=== PATIENT | male | born 1980 | race Caucasian/White ===

== ENCOUNTER 2024-03-21 08:30 | Day surgery (SDC) | payer OTHER, SELFPAY ==
[2024-03-21] MEDS: Lactated Ringers 1,000 ML 15 ML IV (08:57)
[2024-03-21 08:58] VITALS: BP 150/94; PULSE 70; RESP 16; TEMP 36.4; O2SAT 100; BMI 31.9
--- NOTE | 2024-03-21 09:10 | H&P.OPEN ---
HPI - General HPI Narrative FREDI ANAYA, is a 43 M who presents for screening colonoscopy. Patient has never had a colonoscopy in the past. He denies any abdominal pain or blood in the stool. He is on no blood thinners. FORMERLY [facility] Medical History (Updated 03/19/24 @ 08:46 by Tere Moreno) High cholesterol Smoker CPAP (continuous positive airway pressure) dependence Sleep apnea History of echocardiogram Anxiety TY on CPAP HTN (hypertension) Home Medications ?Medication ?Instructions ?Recorded ?Last Taken ?Type amlodipine 10 mg tablet 10 mg PO DAILY 02/15/24 03/21/24 History atorvastatin 40 mg tablet 40 mg PO DAILY 02/15/24 03/20/24 History candesartan 16 mg tablet 16 mg PO DAILY 02/15/24 03/21/24 History potassium chloride 20 mEq 20 meq PO DAILY 02/15/24 03/21/24 History tablet,extended release(part/cryst) (Klor-Con M) spironolactone 25 mg tablet 25 mg PO DAILY 02/15/24 03/21/24 History alprazolam 0.5 mg tablet 0.5 mg PO BID PRN PRN anxiety 03/19/24 Unknown History Allergy/AdvReac Type Severity Reaction Status Date / Time No Known Allergies Allergy Verified 03/21/24 08:53 Family History (Updated 02/15/24 @ 13:21 by Barbara Sousa) Mother Hypertension Diabetes Cancer CVA (cerebral vascular accident) Surgical History (Updated 03/19/24 @ 08:42 by Tere Moreno) History of wisdom tooth extraction Hx of vasectomy Social History (Updated 02/15/24 @ 13:22 by Barbara Sousa) household members: spouse current occupational status: employed Smoking Status: Current some day smoker tobacco type: cigars Smokeless tobacco user: chewing tobacco alcohol intake: current alcohol intake frequency: 0-2 drinks per day Alcohol type: beer substance use type: does not use Past Medical/Surgical History Planned Operation Planned Operative Procedure/s: COLONOSCOPY Previous Hospitalizations/Surgeries HX Hospitalizations: No Any Problems With Anesthesia: No You/Your Family Experience Fever (Hyperthermia) With Anes: No Cholinesterase deficiency: No Cardiovascular Hx Chest Pain within Last 2 months: No Hx of Irregular Heartbeat and/or Afib: No Hx Heart Attack: No Hx Hypertension: Yes Hx Cardiac Surgery/Stents/Etc.: No Hx Pain in Legs when Walking/Leg Cramps: No Respiratory Hx Chronic Obstructive Pulmonary Disease (COPD): No Hx Emphysema: No Hx Sleep Apnea: Yes CPAP: Yes (APAP) BIPAP: No Hx Respiratory Tract Infection/Cold (presently): No Result (for STOP score): Positive Hx Smoking: Yes Smoking Status: Current some day smoker Gastrointestinal Hx Gastrointestinal Bleed: No Hx Ulcer: No Difficulty Chewing/Swallowing: No Hx Unplanned Weight Loss of 20#: Yes Neurological Hx Seizures: No Hx Multiple Sclerosis: No Hx Parkinson's Disease: No Does patient have nerve stimulator: No Blood Disorder Hx Hepatitis: No Hx Cirrhosis: No Hx Anemia: No Hx Blood Disorders: No Genitourinary Hx Renal Disease: No Hx Dialysis: No Musculoskeletal Hx Arthritis: No Hx Rheumatoid Arthritis: No Endocrine Hx Diabetes: No Thyroid Disease: No Psycho/Social Hx Substance Use: No Hx Alcohol Use: Yes (1-2 daily) Hx Anxiety: No Hx Depression: No Hx Dementia: No Miscellaneous Hx Cancer: No Recent Exposure to Contagious Disease: No Allergies No Known Allergies Allergy (Verified 03/21/24 08:53) Maternal: Family History (Updated 02/15/24 @ 13:21 by Barbara Sousa) Mother Hypertension Diabetes Cancer CVA (cerebral vascular accident) Hypertension, Stroke and - (mother with dm, ovarian) Paternal: Family History (Updated 02/15/24 @ 13:21 by Barbara Sousa) Mother Hypertension Diabetes Cancer CVA (cerebral vascular accident) - (father with hiatal hernia) Discharge Is Pt Admitted From a Prison, or a Care Home: No Who Could Help: After D/C, Where Do you Plan to Go: Return Home Vital Signs Vital Signs Vital Signs: 03/21/24 08:58 03/21/24 08:58 Temperature 97.5 F L Temperature Source Temporal Pulse Rate 70 Respiratory Rate 16 Respiratory Pattern Normal Blood Pressure 150/94 H Blood Pressure Mean 112 Blood Pressure Source Monitor Blood Pressure Position Sitting Blood Pressure Location Left Arm Pulse Ox 100 Oxygen Delivery Method Room Air Weight Weight: 229 lb 4.492 oz Body Mass Index (BMI) 31.9 Physical Exam Const alert and oriented x3 HEENT normocephalic Eyes PERRL Resp normal respiratory effort and normal air movement Cardio regular rate and regular rhythm GI soft to palpation, non-tender and non-distended Extremity normal to inspection Assessment & Plan Assessment/Plan (1) Encounter for screening for malignant neoplasm of colon: PLAN: I explained endoscopy in detail to the patient. I explained the risks including but not limited to stroke or heart attack with anesthesia, perforation of the GI tract, bleeding, infection. I explained that any of these could necessitate further emergency surgery. The patient understands and all questions were answered sufficiently. The patient wishes to proceed with procedure. Robert Huff MD Pager: [facility] [address] [place] [address] [address] [place] [address] Office: Surgery Risks - Colonoscopy Risks Include but are not Limited To: Risks include but are not limited to: Bleeding, perforation requiring further surgery, inability to complete colonoscopy requiring barium enema.
--- NOTE | 2024-03-21 09:30 | COLBX_PTH ---
PATIENT: FREDI ANAYA LOC: EN U#:[id number] AGE/SX: 43/M ROOM: RE03/21/[address]: Dr. Robert Huff MD : 1980 BED: DIS: 03/21/2024 SPEC #: [id number] RECD: 03/21/24 10:42 STATUS: DONNA REWale #: [id number] JERI: 03/21/24 09:[address]: Robert Huff DEPT: SURGICAL PATHOLOGY RECD BY: Maty Garcia ENTERED: 03/21/24 11:02 SP TYPE: COLON BX OTHR DR: RONDA Castillo Tissues: Rectosigmoid junction Procedures: Surgery Specimen Level IV HEADER OPERATION: Colonoscopy, polypectomy PRE-OP DIAGNOSIS: Encounter for screening for malignant neoplasm of colon TISSUE SUBMITTED: Rectosigmoid polyp MICROSCOPIC DIAGNOSIS Rectosigmoid polyp, biopsy: Hyperplastic polyp with cautery artifact. AM/mr 03/24/2024 MICROSCOPIC DESCRIPTION Slides are reviewed. GROSS DESCRIPTION Received in fixative is one container labeled with the patient's name and designated Rectosigmoid colon polyp. The specimen consists of a de la o-pink polyp measuring 0.7 x 0.5 x 0.3cm. ADRIANO/ 03/21/2024 TC:5 CPT:64269
--- NOTE | 2024-03-21 09:37 | OP.CCLET_ITS ---
03/21/2024 Katrin Senthil Re : Colonoscopy procedure for Jayro Ndiaye This procedure was performed on Thursday, March 21, 2024. My impressions and recommendations are as follows: Impressions : - One polyp at the recto-sigmoid colon, removed with a hot snare. Resected and retrieved. - The examination was otherwise normal on direct and retroflexion views. Recommendations : - Discharge patient to home. - Resume previous diet. - Continue present medications. - Await pathology results. - Repeat colonoscopy in 5 years for surveillance. My findings are described in the full procedure note, which is enclosed. If I can be of further assistance, please feel free to contact me at Doctor phone number(s): , Work: . Sincerely, Robert Huff MD 03/21/2024 9:37:11 AM This report has been signed electronically.
--- NOTE | 2024-03-21 09:37 | OP.COLON_ITS ---
Patient Name: Jayro Rivas Procedure Date: 03/21/2024 9:15 AM Date of : 1980 Age: 43 Procedure: Colonoscopy Indications: Screening for colorectal malignant neoplasm Providers: Robert Huff MD Referring MD: Katrin Ndiaye Medicines: Propofol per Anesthesia Patient Profile: This is a 43 year old male. Refer to note in patient chart for documentation of history and physical. Last Colonoscopy: none. The patient's first colonoscopy is today. Complications: No immediate complications. Procedure: Pre-Anesthesia Assessment: - Prior to the procedure, a History and Physical was performed, and patient medications and allergies were reviewed. The patient's tolerance of previous anesthesia was also reviewed. The risks and benefits of the procedure and the sedation options and risks were discussed with the patient. All questions were answered, and informed consent was obtained. Prior Anticoagulants: The patient has taken no anticoagulant or antiplatelet agents. After reviewing the risks and benefits, the patient was deemed in satisfactory condition to undergo the procedure. After I obtained informed consent, the scope was passed under direct vision. Throughout the procedure, the patient's blood pressure, pulse, and oxygen saturations were monitored continuously. The Colonoscope was introduced through the anus and advanced to the cecum, identified by appendiceal orifice and ileocecal valve. The colonoscopy was performed without difficulty. The patient tolerated the procedure well. The quality of the bowel preparation was good. The ileocecal valve, appendiceal orifice, and rectum were photographed. Scope In: 9:24:46 AM Scope Withdrawal Time 0 hours 6 minutes 28 seconds Scope Out: 9:34:18 AM Total Procedure Duration Time 0 hours 9 minutes 32 seconds Findings: A polyp was found in the recto-sigmoid colon. The polyp was removed with a hot snare. Resection and retrieval were complete. The exam was otherwise without abnormality on direct and retroflexion views. Impression: - One polyp at the recto-sigmoid colon, removed with a hot snare. Resected and retrieved. - The examination was otherwise normal on direct and retroflexion views. Recommendation: - Discharge patient to home. - Resume previous diet. - Continue present medications. - Await pathology results. - Repeat colonoscopy in 5 years for surveillance. Procedure Code(s): --- Professional --- 52483, 33, Colonoscopy, flexible; with removal of tumor(s), polyp(s), or other lesion(s) by snare technique Diagnosis Code(s): --- Professional --- Z12.11, Encounter for screening for malignant neoplasm of colon D12.7, Benign neoplasm of rectosigmoid junction CPT copyright 2021 [employer]. All rights reserved. The codes documented in this report are preliminary and upon auditing coder review may be revised to meet current compliance requirements. Robert Huff MD 03/21/2024 9:37:11 AM This report has been signed electronically. Number of Addenda: 0 Note Initiated On: 03/21/2024 9:15 AM
[2024-03-21 09:40] VITALS: BP 100/70; BP 150/94; PULSE 62; RESP 16; TEMP 36.1; O2SAT 96
[2024-03-21 09:45] VITALS: BP 104/60; BP 150/94; PULSE 66; RESP 16; O2SAT 94
[2024-03-21 09:50] VITALS: BP 106/72; BP 150/94; PULSE 65; RESP 16; O2SAT 93
[2024-03-21 09:55] VITALS: BP 121/81; BP 150/94; PULSE 62; RESP 16; TEMP 36.3; O2SAT 96
[2024-03-21 10:15] VITALS: BP 150/94
== END 2024-03-21 10:21 | disposition home or self-care (01) ==
LOC: EN 08:33 → AC 08:33
PROVIDERS: PCP Physician Assistant; Referring Provider Physician Assistant; Visit Provider Surgery
PROC: 0DJD8ZZ Inspection of Lower Intestinal Tract, Via Natural or Artificial Opening Endoscopic (ICD-10-PCS; CPT 45378; principal; 2024-03-21 09:25)
DX: Z12.11 Encounter for screening for malignant neoplasm of colon (principal); K63.5 Polyp of colon; I10 Essential (primary) hypertension; F17.290 Nicotine dependence, other tobacco product, uncomplicated; E78.00 Pure hypercholesterolemia, unspecified; Z79.899 Other long term (current) drug therapy; F17.220 Nicotine dependence, chewing tobacco, uncomplicated
CPT/HCPCS: 45385; 88305; J7120; J2405